=== PATIENT | male | born 1940 | race Caucasian/White ===

== ENCOUNTER 2017-01-12 12:59 | Inpatient (IN) ==
[2017-01-12 13:31] LABS: MANUAL DIFF NEEDED? NO
[2017-01-12 13:44] LABS: INR 1.06; PROTIME 11.2 Seconds (9.2-11.7); PTT 24.7 Seconds (22.0-36.0)
[2017-01-12 13:47] LABS: BASO% 0.6 % (0.0-0.8); EOS# 0.17 X1000 (0.0-0.7); EOS% 3.2 % (0.0-10.0); HEMATOCRIT 24.5 % (42.0-52.0); LYMPH# 1.18 X1000 (1.2-3.4); LYMPH% 22.3 % (20.5-51.1); MCH 29.6 PG (27-31); MCHC 32.7 g/dL (33-37); MCV 90.7 FL (81-99); MONO# 0.58 X1000 (0.11-0.59); MPV 8.5 FL (7.4-10.4); NEUT% 62.9 % (42.2-75.2); PLT 152 X1000 (130-400)
[2017-01-12 14:03] LABS: ALBUMIN 3.6 g/dL (3.5-5.0); CALCIUM 8.8 mg/dL (8.8-10.2); POTASSIUM 4.6 mmol/L (3.5-5.1); TOTAL BILIRUBIN 0.42 mg/dL (0.20-1.00)
--- NOTE | 2017-01-12 16:28 | PROVIDER DOCUMENTATION ---
HPI-General Adult - History of Present Illness -Gen Adult Nature of Presenting Problems: 76 yom presents to ed with abnormal labs.pt states he was sent by in home care nurse due to abnormal lab work drawn sunday01/08/2017.pt has had 4 bypass and heart valve surgery dec 13.pt states he has been feeling weakness and nausea for 2 wks and is getting worse. Location of Pain/Injury: reports: none Pain Radiation: reports: no radiation Quality of Pain: reports: none Severity: reports: mild Onset/Duration: reports: this morning Timing: reports: still present Context/Activities at Onset: reports: none Modifying Factors: improves with: nothing Associated Symptoms: reports: nausea, weakness. denies: diarrhea, vomiting Similar Symptoms Previously?: No Recently seen or treated by another doctor?: No <Stephany Wise - Last Filed: 01/12/17 16:36> <Mal Driver - Last Filed: 01/12/17 16:40> - General Chief Complaint: Abnormal Lab[s] Stated Complaint: sent by MD for further eval Time Seen by Provider: 01/12/17 15:51 Allergies/Adverse Reactions: Patient Allergies Allergy/AdvReac Type Severity Reaction Status Date / Time No Known Allergies Allergy Verified 11/09/16 12:00 Home Medications: Home Medication List Medication Instructions Recorded Confirmed Last Taken Type Aspirin EC 81 mg PO DAILY 11/09/16 01/12/17 01/12/17 07:00 History Levothyroxine [Synthroid] 175 microgm PO QAM 11/09/16 01/12/17 01/12/17 07:00 History Linagliptin [Tradjenta] 5 mg PO QAM 11/09/16 01/12/17 01/12/17 07:00 History Multivit-Minerals/FA/Lycopene [One PO QAM 11/09/16 01/12/17 07:00 History Daily For Men Tablet] Nitroglycerin [Nitrostat] 0.4 mg SL 2-4XDAY PRN PRN #10 11/09/16 01/12/17 Unknown Rx tab.subl PRAVAstatin [Pravachol] 40 mg PO QPM 11/09/16 01/12/17 01/12/17 07:00 History Amiodarone [Cordarone] 1 tab PO DAILY 01/12/17 01/12/1717 07:00 History CefTRIAXONE [Rocephin] 1 dose IV DAILY 01/12/17 01/12/17 01/11/17 History Docusate Sodium [Colace] 1 cap PO DAILY 01/12/17 01/12/17 01/12/17 07:00 History Linezolid 1 dose IV DAILY 01/12/17 01/12/17 01/11/17 History Review of Systems - Adult - REVIEW OF SYSTEMS - ADULT Constitutional: reports: fatique. denies: chills, fever Eyes: reports: no symptoms reported Ears, Nose, Mouth & Throat: reports: no symptoms reported Cardiovascular: reports: other (weakness). denies: chest pain, palpitations Respiratory: reports: no symptoms reported Gastrointestinal: reports: nausea. denies: abdominal pain, vomiting Genitourinary: reports: no symptoms reported Musculoskeletal: reports: no symptoms reported Integumentary: reports: no symptoms reported Neurological: reports: no symptoms reported Psychiatric: reports: no symptoms reported Endocrine: reports: no symptoms reported Hematologic/Lymphatic: reports: no symptoms reported Allergic/Immunologic: reports: no symptoms reported All Other Systems: Reviewed and Negative <Stephany Wise - Last Filed: 01/12/17 16:36> Past History - Adult - PAST MEDICAL HISTORY-ADULT Review of Records: reports: Old Records Reviewed, Nursing Assessment Review, Medications Reviewed Major Childhood Illnesses: reports: denies history Cardiovascular: reports: HTN, hyperlipidemia Respiratory: reports: denies history Gastrointestinal: reports: denies history Obstetrical/Gynecological: reports: denies history Genitourinary: reports: denies history Musculoskeletal: reports: denies history Neurological: reports: denies history Endocrine/Immune: reports: Diabetes Other Conditions: reports: denies history - PRIOR SURGERIES/PROCEDURES Surgical/Procedure History: reports: EGD, cholecystectomy, tonsillectomy - IMMUNIZATION STATUS Childhood Immunizations: See Nurse Assessment Flu Vaccine: See Nurse Assessment - FAMILY HISTORY Family History: reviewed, not pertinent - SOCIAL HISTORY Smoking: denies Substance Use: denies Alcohol Use Frequency: never Living Situation: family <Stephany Wise - Last Filed: 01/12/17 16:36> Physical Exam-General - PHYSICAL EXAM-ADULT Initial Vital Signs Reviewed: Yes - CONSTITUTIONAL General Appearance: appears well, alert, no apparent distress - EYES Eyes: PERRL/EOMI, pink conjunctivae, fundi clear, no AV nicking - HEAD, EARS, NOSE, MOUTH & THROAT HENMT: normocephalic/atraumatic, moist mucous membranes, normal ENT inspection - NECK Neck: non-tender, full range of motion, supple, normal inspection - RESPIRATORY Respiratory: chest non-tender, lungs clear, normal breath sounds, no pleuratic chest pain, no respiratory distress, no accessory muscle use - CARDIOVASCULAR Cardiovascular: normal peripheral pulses, regular rate, rhythm, no edema, no gallop, no JVD, no murmur - GASTROINTESTINAL (ABDOMEN) Abdominal Exam: normal bowel sounds, non tender, soft, no organomegaly, no pulsatile mass - LYMPHATIC Lymphatic: no adenopathy - MUSCULOSKELETAL Back Exam: normal inspection, no CVA tenderness, no vertebral tenderness Extremity: normal range of motion, non-tender, normal inspection, no pedal edema , no calf tenderness, normal capillary refill - SKIN Integumentary: normal color, normal turgor, warm/dry - NEUROLOGIC Neurologic: 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 as tested, grossly normal, no motor/sensory deficits - PSYCHIATRIC Psych/Mental Status: normal mood/affect, normal thought content, normal thought process, oriented x 3 <Stephany Wise - Last Filed: 01/12/17 16:36> Progress - REASSESSMENT Reassessment #1 Time Reassessed: 16:38 Status: unchanged (discussed with Dr Nugent who agrees to admission for evaluation of anemia) <Mal Driver - Last Filed: 01/12/17 16:40> Departure <Stephany Wise - Last Filed: 01/12/17 16:36> - Departure Time of Disposition Order: 16:40 Certified Medical Emergency: Emergent <Mal Driver - Last Filed: 01/12/17 16:40> - Departure DIAGNOSIS: Anemia Qualifiers: Anemia type: unspecified type Qualified Code(s): D64.9 - Anemia, unspecified Disposition: HOME 01 Condition: Stable Referrals: Jn Leiva MD [Primary Care Provider] - Attestation - Scribe Verification/Attestation Scribe:: Stephany Wise Acting as Scribe for:: Mal Driver Scribe documention review:: This chart was documented by a scribe and accurately reflects the service the provider performed and the decisions made by the provider. <Stephany Wise - Last Filed: 01/12/17 16:36> Physician Attestation
[2017-01-12] MEDS ORDERED: NITROGLYCERIN SL PRN (17:33)
[2017-01-12] MEDS ORDERED: ZOFRAN IV PRN (17:33)
[2017-01-12] MEDS ORDERED: PROTONIX IV SCH (17:33)
[2017-01-12 17:55] LABS: IRON SATURATION 64 %; TIBC 245 ug/dL; TOTAL IRON 156 ug/dL (53-167); UNBOUND IRON 89 ug/dL (112-346)
[2017-01-12] MEDS ORDERED: NS 1,000 ML IV SCH (18:00)
[2017-01-12 18:02] LABS: HEMOGLOBIN A1C 5.7 % (4.8-6.0)
[2017-01-12] MEDS: SODIUM CHLORIDE 0.9% INJ SCH (18:53)
--- NOTE | 2017-01-12 19:02 | HISTORY AND PHYSICAL ---
CHIEF COMPLAINT: Weakness and anemia. PCP: Dr. Jn Leiva. INFECTIOUS DISEASES: Dr. Kenney. HISTORY OF PRESENT ILLNESS: Mr. Sandoval is a 76-year-old male with a history of severe coronary disease status post CABG in November done at [facility]. He also had a valve replaced. He is currently on IV antibiotics per Dr. Kenney in [place] for I believe endocarditis but the patient is unsure. He states there was possibly mass on his valve but he denies any history of bacteremia. He was at Dr. Kenney's office today, he was complaining of some weakness and shortness of breath over the past week and a half so Dr. Kenney told him to come to the ER for evaluation. In the ER patient had labs and diagnostics done. He was found to be anemic with a hemoglobin of 8. The patient does have blood work here 2 other times this month and his hemoglobin at that time has been 8.1, and 9, in November and October his hemoglobin was 10.8 and 11.3. The patient has been complaining of some abdominal discomfort and queasiness but he denies any overt pain or vomiting. He denies any lower extremity edema or orthopnea, he denies any melena, hematochezia or hematemesis. He does report around a 20-pound weight loss this month. He denies any fever, chills, cough or congestion. The patient also has some mild renal insufficiency but again this seems to be somewhat chronic as he has had a creatinine of 1.2 measured since October. His vital signs are stable. We are now going to admit him for further evaluation and treatment. PAST MEDICAL HISTORY: 1. Coronary disease status post CABG and valve replacement. 2. Some type of bacterial infection on IV antibiotics per Dr. Kenney in [place]. 3. Type 2 diabetes. 4. Hypertension. 5. Hyperlipidemia. History of CABG and valve replacement, cholecystectomy, appendectomy. SOCIAL HISTORY: Patient denies tobacco, alcohol or drug use. 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 He has family at the bedside. FAMILY HISTORY: Mother at 87 from alcohol-related disease. Dad from unknown causes. REVIEW OF SYSTEMS: Fourteen-point review of systems obtained and found to be negative with the exception of the HPI. ALLERGIES: No known drug allergies. HOME MEDICATIONS: Amiodarone 200 mg daily, aspirin 81 mg daily, Rocephin 1 g daily, Colace 100 mg daily, Synthroid 175 mcg daily, Tradjenta 5 mg a.m. Zyvox 600 mg daily, Pravachol 40 mg q.p.m., Nitrostat as needed. PHYSICAL EXAMINATION: VITAL SIGNS: Blood pressure is 142/53, heart rate 58, respiratory rate 18, O2 saturation 100% on room air, temperature is 98 degrees. GENERAL: This is an obese male lying in hospital bed in no acute distress. NEUROLOGIC: The patient is awake, alert and oriented. He follows commands without focal deficits. HEENT: Head is atraumatic and normocephalic. His pupils are equal, round, reactive to light. Oral mucosa is moist. Trachea is midline. There is no JVD. No carotid bruits. CHEST: Clear to auscultation bilaterally. Surgical incisions are clean, dry and intact. Powell port is noted in the right chest. CV: Regular rate and rhythm. S1-S2 is noted. No murmurs, gallops, clicks, rubs. GI: Epigastric tenderness to palpation. GI bowel sounds are hypoactive. EXTREMITIES: Trace to 1+ edema bilaterally with pulses palpable but diminished. DIAGNOSTIC DATA: Sodium 139, potassium 4.6, chloride 101, CO2 22, anion gap 16, BUN 23, creatinine 1.4, glucose 125, calcium 8.8, bilirubin 0.42, AST 20, ALT 8, alkaline phosphatase 53, protein 6, INR 1.06. WBC 5.29, hemoglobin 8, hematocrit 24.5, platelet count 152,000. Chest and abdomen x-ray as well as EKG are pending. ASSESSMENT/PLAN: 1. Anemia: This seems to be somewhat of a chronic issue but will check occult stool, iron studies and a CT of the abdomen and pelvis. Given his mild abdominal pain we may consult GI but will wait for some more results to come back. 2. Acute on chronic renal failure: Likely prerenal. We will withhold any nephrotoxic medications and monitor, being cautious with hydration and we will start very gentle hydration at 50 mL an hour of normal saline. 3. Diabetes mellitus: Will check a hemoglobin A1c, thyroid function and add pattern sugars sliding scale insulin and hold his home medications. 4. Hypothyroidism: Chronic stable, continue Synthroid and check thyroid function. 5. Coronary artery disease: Patient does report some mild shortness of breath, this is likely secondary to his anemia but we will make sure and rule out myocardial infarction with cardiac enzymes, check a chest x-ray and EKG. 6. Bacterial infection on intravenous antibiotics: We are going to get records from [facility] and Dr. Kenney and consult with Dr. Alegre. Patient has no white count and he is afebrile at this time. 7. Deep vein thrombosis prophylaxis will be provided with SCDs and TEDs given his anemia of unknown origin. Further recommendations to follow. Dictated by ESVIN Garner for Janis Hernandez MD
[2017-01-13 06:51] LABS: MANUAL DIFF NEEDED? NO
[2017-01-13 07:03] LABS: BASO% 0.2 % (0.0-0.8); EOS# 0.17 X1000 (0.0-0.7); EOS% 3.8 % (0.0-10.0); HEMATOCRIT 21.6 % (42.0-52.0); HEMOGLOBIN 6.9 g/dL (14.0-18.0); LYMPH# 1.12 X1000 (1.2-3.4); LYMPH% 24.9 % (20.5-51.1); MCHC 31.9 g/dL (33-37); MCV 90.8 FL (81-99); MONO# 0.43 X1000 (0.11-0.59); MONO% 9.6 % (1.7-9.3); NEUT% 61.5 % (42.2-75.2); PLT 124 X1000 (130-400); RBC 2.38 XMIL (4.7-6.1); RETIC% 0.51 % (0.8-2.1); RETIC-HE 32.1 PG (28.2-36.6)
[2017-01-13 07:11] LABS: AGAP 13; BUN 24 mg/dL (8-22); CALCIUM 8.7 mg/dL (8.8-10.2); CHLORIDE 104 mmol/L (98-107); COSMO 286; HDL 50 mg/dL (35-55); LDL 11 mg/dL; POTASSIUM 4.6 mmol/L (3.5-5.1); SODIUM 141 mmol/L (136-145); TCO2 24 mmol/L (25-35); TRIGLYCERIDES 119 mg/dL (39-160); VLDL 24 mg/dL
[2017-01-13] MEDS ORDERED: LACTULOSE PO ONE (09:00)
[2017-01-13] MEDS ORDERED: LINEZOLID IV SCH (09:00)
[2017-01-13] MEDS ORDERED: ROCEPHIN IV SCH (09:00)
[2017-01-13] MEDS: ZYVOX 600 MG/D5W 300 ML IV SCH (09:20)
[2017-01-13] MEDS: VITAMIN B-12 SL SCH (09:27)
[2017-01-13] MEDS: COLACE PO SCH (09:27)
[2017-01-13] MEDS: SYNTHROID PO SCH (09:27)
[2017-01-13] MEDS: CORDARONE PO SCH (09:27)
[2017-01-13] MEDS: MIRALAX PO SCH ×2 (09:27→21:20)
--- NOTE | 2017-01-13 10:46 | Diag Imaging Result Document ---
PROCEDURE NAME: ABDOMEN/PELVIS W/O CONTRAST - 01/12/2017 CT ABDOMEN AND PELVIS: A CT dose reduction protocol was used. COMPARISON: Chest CT 11/09/2016. FINDINGS: There is a new moderate left basilar pleural effusion with atelectasis. There are new valve replacement changes which probably explains this. No radiodense renal stones. There is a left renal cyst. No bowel obstruction or inflammation. Urinary bladder, prostate, and rectum are normal. There are cholecystectomy clips. Bony structures are intact. IMPRESSION: New aortic valve replacement change. Left basilar pleural effusion with adjacent atelectasis. Otherwise, no acute findings. [facility]
--- NOTE | 2017-01-13 11:46 | Diag Imaging Result Document ---
PROCEDURE NAME: FLAT/UPRIGHT ABD/1 VIEW CHEST - 01/12/2017 FRONTAL CHEST X-RAY AND TWO VIEWS OF THE ABDOMEN: COMPARISON: 11/09/2016. FINDINGS: There is a new right central line with the catheter tip at the SVC. There is a new left basilar pleural effusion that is [id number] in size. No infiltrates. There are new sternotomy wires. Heart size it top normal. There are cholecystectomy clips. No bowel obstruction or free air. IMPRESSION: 1. New surgical changes in the chest. 2. New small left basilar pleural effusion.
[2017-01-13] MEDS ORDERED: NS 500 ML ONE (13:04)
[2017-01-13] MEDS: LASIX IV SCH (14:39)
[2017-01-13] MEDS: ROCEPHIN 1 GM/NS 50 ML IV SCH (14:40)
--- NOTE | 2017-01-13 14:58 | PROGRESS NOTE ---
DATE: 01/13/2017 SUBJECTIVE: Today, Mr. Sandoval referred to be doing a little fine. Briefly, Mr. Sandoval is a 76-year- old gentleman who was recently diagnosed with coronary artery disease and underwent CABG on 12/13/2016 and a valvular replacement during that same surgery. I am not quite sure if it was the mitral or the aortic. The patient postoperatively did fine, went home, but he is being treated with antibiotics. I am not sure if he had endocarditis. He follows up with Dr. Hobson, the cardiothoracic surgeon, and Dr. Kenney of Infectious Disease. According to him, he has been feeling remarkably weaker over the course of the weeks. Home health did some laboratory work and he was called a couple of days later and told to come to the ER because of abnormal findings. Over here in the ER, his initial hemoglobin was 8.0 and the repeat this morning is down to 6.9. Patient's Hemoccult is positive and he refers to feel relatively dizzy when he gets up. OBJECTIVE: Vital Signs: Blood pressure is 139/71, pulse of 66, respirations 17, and temperature is 97.5 degrees. General: Mr. Sandoval is a 76-year-old male. He was in bed. He did not seem to be in any distress. HEENT: Mucosa is pink and moist. Anicteric. Acyanotic. Neck: Supple. Chest: There is a fresh surgical scar on the sternum consistent with recent open heart surgery. Cardiovascular: Regular rate and rhythm. Abdomen: Soft, distended, and mildly tender in the right lower quadrant. Extremities: Mildly edematous on the right, where venous harvesting took place. Lungs: Air entry is bilaterally reduced. There are a few bibasilar coarse crepitations. Central Nervous System: Patient is alert and oriented x4. There is no focal neurological deficit. LABORATORY DATA: WBC is 4.50, hemoglobin is 6.9, and platelet count is 124,000. Chemistry is reviewed. Creatinine is 1.3. Folate is normal, but B12 is remarkably low at 126. ASSESSMENT: 1. Symptomatic anemia. The patient's hemoglobin is 6.9 this morning. We will going to group and crossmatch him, and give him 2 units of PRBC. We hope to maintain the hemoglobin above 9, being a cardiac patient who just had surgery. 2. Coronary artery disease status post coronary artery bypass graft and valvular replacement. I understand it is a tissue valve, but we do not know. This was done by Dr. Hobson. I have tried to reach out to him at [phone]. The office is closed. 3. Long-term antibiotic therapy. Unsure why the patient is on this. My guess is he is being treated for endocarditis. However, I am not certain. I tried to reach Dr. Kenney at [phone], but nobody picked up the phone. 4. Hypothyroidism, stable. 5. Acute kidney injury. 6. Atelectasis with some pleural effusion. We will continue with low-dose diuresis. 7. B12 deficiency. Patient is getting supplements. 8. Positive occult blood. The patient is on aspirin. Unsure if the anemia is due to GI blood loss. Gastroenterology has been consulted. Patient is currently on PPI IVPB. In general, Mr. Sandoval is a 76-year-old male who recently had major heart surgery, who presented with symptomatic anemia. A CT scan of the abdomen has shown some left pleural effusion and left lower lobe atelectasis or consolidation. There is moderate stool. But most concerning is his anemia, which looks like the reticulocyte count is ridiculously low for the level of anemia, so I am suspecting this is a hypoproliferative bone marrow state, which linezolid is an agent that can cause it. Also, patient is B12 deficient, so this could also be a factor. I have tried to reach out to both his cardiothoracic surgeon and his infectious disease doctor at the numbers given to me by [facility] [place], but none of them have responded. We are going to do a CT scan of the chest to get a better image of the lungs and also an echocardiogram to make sure there has not been any gradual leaking into the pericardium or any post-surgical complications. We will also consult Gastroenterology to do a GI evaluation to rule out GI blood loss, and we have also consulted Heme-Onc for the pancytopenia.
--- NOTE | 2017-01-13 16:06 | Diag Imaging Result Document ---
PROCEDURE NAME: CT THORAX W/O CONTRAST - 01/13/2017 CT CHEST: A CT dose reduction protocol was used. COMPARISON: 01/12/2017, 11/09/2016. FINDINGS: There is a right-sided central line. There are new aortic valve changes. There are sternotomy wires. No infiltrates or pneumonia. There is a small to moderate left pleural effusion and some adjacent atelectasis. IMPRESSION: 1. Small left pleural effusion. 2. No change from yesterday. 3. No infiltrates. [facility]
[2017-01-13] MEDS ORDERED: PERICOLACE PO ONE (19:05)
--- NOTE | 2017-01-13 22:26 | CONSULTATION ---
DATE OF CONSULTATION: 01/13/2017 REFERRING PHYSICIAN: Joey Mullins M.D. PRIMARY CARE PHYSICIAN: Jn Leiva M.D. INFECTIOUS DISEASE: Dr. Kenney. INDICATION FOR CONSULTATION: 1. Anemia. 2. Weakness. HISTORY OF PRESENT ILLNESS: The patient is a 76-year-old white male who had severe coronary artery disease. In November 2015, he underwent a 4-vessel bypass as well as aortic valve replacement. He was noted to have a possible mass on his valve but had no symptoms of bacteremia. Postop, the patient reports that he was doing well. However, he developed progressive weakness and shortness of breath. He was referred to the emergency room by Dr. Kenney and was subsequently found to be anemic with a hemoglobin of 8. Over the last month, he has had 3 episodes of recurrent anemia but had no signs of bleeding. One day prior to admission, he reports dark brown to black stools. Otherwise, he denies melena, hematochezia, hematemesis. He has had an unplanned weight loss of approximately 20 pounds. His main complaint has been weakness and fatigue. Since admission, his hemoglobin has dropped from 8.0 to 6.9 with a hematocrit of 21.6. The patient states that he has had multiple EGDs and colonoscopies in the past. He has a history of gastric polyps as well as colon polyps. We are asked to participate in his care. PAST MEDICAL HISTORY: 1. Coronary artery disease status post 4-vessel CABG and aortic valve replacement. 2. Possible mass versus infection on his aortic valve. 3. Bacterial infection treated with IV antibiotics post CABG. 4. Diabetes 2. 5. Hypertension. 6. Hyperlipidemia. 7. Iron-deficiency anemia. PAST SURGICAL HISTORY: 1. Coronary artery bypass surgery. 2. Aortic valve replacement. 3. Cholecystectomy. 4. Appendectomy. SOCIAL HISTORY: Negative for alcohol, tobacco or recreational drug use. 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 He relocated from [place], [place] 3 months ago to be closer with 2 children and grandchildren. FAMILY HISTORY: Remarkable that his mother at age 87 years of age from alcohol-related disease. His father of unknown causes. REVIEW OF SYSTEMS: Remarkable for nausea and mild diffuse abdominal pain, melena for 1 day, weakness and shortness of breath. MEDICATION ALLERGIES: None. HOME MEDICATIONS: 1. Amiodarone. 2. Aspirin. 3. Rocephin. 4. Colace. 5. Synthroid. 6. Tradjenta. 7. Zyvox. 8. Pravachol. 9. Nitrostat. PHYSICAL EXAMINATION: Vital Signs: His blood pressure is 152/69, pulse 64, respiration 18, temperature of 97.9 degrees. HEENT: Negative for jaundice. His conjunctivae are normal. His oropharyngeal mucosa membranes are unremarkable. Pulmonary: Lungs are clear to auscultation with normal expiratory effort. Cardiovascular Exam: Reveals regular rate and rhythm with no gallops or rubs. He does have a sternotomy scar consistent with his recent surgical history. Abdominal: He has mild diffuse tenderness. There is central adiposity. There is no rebound or guarding. The bowel sounds are normoactive. Extremities: Bilaterally are notable for trace edema Neurologic Exam: He is alert and oriented x3 although he is slightly hard of hearing. OBJECTIVE DATA: Remarkable for hemoglobin of 6.9 with hematocrit of 21.6 and white count of 4.50. He has 124,000 platelets. His sodium is 141, potassium 4.6, chloride 104, CO2 24, BUN 24, creatinine 1.3 with a glucose of 113. His calcium is 8.7. His TSH is 5.01. On admission on 01/12/2017 his PT was 11.2 with an INR of 1.06 and a PTT of 24.7. His stool is guaiac positive. IMPRESSION: 1. Profound anemia. 2. History of gastric polyps. 3. History of colon polyps. 4. Mild nausea. 5. Diffuse abdominal tenderness. RECOMMENDATION: 1. Because the patient is heme-positive consistent with his serum chemistries which reveal anemia, I recommend an EGD and colonoscopy on Sunday. 2. In addition to endoscopic evaluation, I will increase his PPI therapy to twice a day with Protonix 40 mg in order to minimize the risk of an upper GI bleed. 3. The patient has a history of constipation according to his . Therefore, I would continue the MiraLAX twice a day. Should he have diarrhea I would reduce either the MiraLAX or the stool softener which he is currently receiving. 4. Additional recommendations will follow based on his clinical course. [facility]
[2017-01-14] MEDS: LASIX IV SCH ×2 (00:38→12:54)
--- NOTE | 2017-01-14 03:50 | ECHO REPORT ---
ORDER DATE: 01/13/2017 MEASUREMENTS: Left ventricular end-diastolic diameter 5.4, end-systolic diameter 3.4, septal thickness 1, posterior wall thickness 1, left atrium 5.6, aortic root 4.2. SUMMARY: 1. Technically difficult study due to limited acoustic window quality. 2. Aortic valve has been replaced with bioprosthesis. Peak gradient across the aortic valve is 38.9 mmHg with a mean gradient of 19.1 mmHg. Calculated aortic valve area is 1.6 cm2. There is no aortic insufficiency. Mitral and tricuspid valves are without structural abnormality with very mild mitral regurgitation and very mild tricuspid regurgitation. Pulmonic valve is not well demonstrated. Estimated systolic PA pressure by Doppler is approximately 50 mmHg suggesting moderate pulmonary hypertension. The aortic root is mildly enlarged. 3. Normal left ventricular dimensions suggested. Estimated left ejection fraction is approximately 65-70%. No regional wall motion abnormalities are evident. Left atrium is moderately enlarged. Right atrium and right ventricle are of normal size with grossly preserved right ventricular systolic performance. 4. No pericardial effusion. 5. Inferior vena cava not well demonstrated. CONCLUSIONS: 1. Technically difficult study. 2. Aortic valve bioprosthesis appears to be functioning adequately. 3. Very mild mitral regurgitation and very mild tricuspid regurgitation. 4. Moderate pulmonary hypertension by Doppler. 5. Estimated left ejection fraction is 65-70%. 6. Moderate left atrial enlargement.
[2017-01-14] MEDS: SODIUM CHLORIDE 0.9% INJ SCH ×2 (06:14→18:11)
[2017-01-14] MEDS: PROTONIX IV SCH ×2 (06:14→18:11)
[2017-01-14 06:57] LABS: MANUAL DIFF NEEDED? NO
[2017-01-14 07:12] LABS: BASO% 0.6 % (0.0-0.8); EOS% 3.9 % (0.0-10.0); HEMATOCRIT 27.3 % (42.0-52.0); HEMOGLOBIN 9.2 g/dL (14.0-18.0); LYMPH# 1.38 X1000 (1.2-3.4); LYMPH% 27.1 % (20.5-51.1); MCH 30.1 PG (27-31); MCHC 33.7 g/dL (33-37); MCV 89.2 FL (81-99); MONO# 0.62 X1000 (0.11-0.59); MONO% 12.2 % (1.7-9.3); MPV 9.1 FL (7.4-10.4); NEUT% 56.2 % (42.2-75.2); PLT 123 X1000 (130-400); RBC 3.06 XMIL (4.7-6.1)
[2017-01-14 07:29] LABS: CALCIUM 8.7 mg/dL (8.8-10.2); POTASSIUM 4.6 mmol/L (3.5-5.1)
[2017-01-14] MEDS: ROCEPHIN 1 GM/NS 50 ML IV SCH (08:08)
[2017-01-14] MEDS: MIRALAX PO SCH ×2 (08:09→20:45)
[2017-01-14] MEDS: VITAMIN B-12 SL SCH (08:10)
[2017-01-14] MEDS: COLACE PO SCH (08:10)
[2017-01-14] MEDS: CORDARONE PO SCH (08:10)
[2017-01-14] MEDS: SYNTHROID PO SCH (08:10)
[2017-01-14] MEDS: ZYVOX 600 MG/D5W 300 ML IV SCH ×2 (08:52→15:06)
[2017-01-14] MEDS ORDERED: DULCOLAX PO ONE ×2 (09:00→19:05)
[2017-01-14] MEDS ORDERED: MIRALAX PO ONE (14:00)
[2017-01-14] MEDS ORDERED: NON-FORMULARY BULK MED PO ONE (14:15)
--- NOTE | 2017-01-14 18:11 | PROGRESS NOTE ---
DATE: 01/14/2017 SUBJECTIVE: Today Mr. Sandoval referred to be doing relatively fine. Denies any remarkable dizziness or any chest pains. Patient has been walking around on the floor with his without any major problems. OBJECTIVE: Vital signs: Blood pressure is 124/63, pulse of 61, respirations 20, temperature is 98.7 degrees. General: Mr. Sandoval is a 73-year-old male. He was in bed. Did not seem to be in any distress. HEENT: Mucosa is pink and moist. Anicteric. Acyanotic. Neck: Supple. Chest: Good air entry bilateral. There are some crepitations in the lower posterior lung field, more so on the left. There is a fresh surgical scar on the sternum consistent with recent open heart surgery. Cardiovascular: Regular rate and rhythm. I did not appreciate any murmurs. No rubs. No gallops. Abdomen: Soft, nontender. Extremities: Mildly edematous on the right where there was a venous harvest. 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 There is no focal neurological deficit. LABORATORY DATA: WBC is 5.09, hemoglobin is 9.3, platelet count of 123,000. Chemistry is reviewed and completely normal. An echocardiogram which was done yesterday shows there is a bioprosthetic aortic valve which is functioning adequately. Estimated ejection fraction is 65 to 70%. There is moderate left atrial enlargement. A CT scan of the chest did show small left pleural effusion. No infiltrates. ASSESSMENT: 1. Symptomatic anemia. Hemoccult is positive. Patient has been transfused 2 PRBC. Hemoglobin and hematocrit are back to normal. We are going to continue very close monitoring. Patient has been seen by GI and there is a plan for EGD colonoscopy. 2. Coronary artery disease status post recent coronary artery bypass graft with aortic valve replacement. Seems to be bioprosthetic as per the echo report. 3. Long-term antibiotic. This was started after the surgery in [facility]. Patient is being followed by Dr. Kenney, ID physician in [place]. 4. Hypothyroidism, stable. 5. Acute kidney injury. This is resolved. 6. Left pleural effusion with atelectasis. Patient will continue with incentive spirometer. 7. 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 8. B12 deficiency. Probably causing the above condition. Will continue replacing this. PLAN: In general, Mr. Sandoval seems to be doing a whole lot better today. He has been walking on the floor with the . He is clinically stable. He is pending EGD, colonoscopy tomorrow as per GI's note. Will follow up with further recommendations after the procedure. I will get in touch with Dr. Hobson and Dr. Kenney who are his physician's in [place] to update them on what is going on with the patient.
[2017-01-14] MEDS ORDERED: FLEET ENEMA PR PRN (18:28)
[2017-01-15] MEDS: LASIX IV SCH (00:55)
[2017-01-15] MEDS: PROTONIX IV SCH (06:08)
[2017-01-15] MEDS: SODIUM CHLORIDE 0.9% INJ SCH (06:08)
[2017-01-15 07:40] LABS: CALCIUM 8.6 mg/dL (8.8-10.2); POTASSIUM 4.4 mmol/L (3.5-5.1)
[2017-01-15 08:22] LABS: MANUAL DIFF NEEDED? NO
[2017-01-15 08:27] LABS: BASO% 0.5 % (0.0-0.8); EOS# 0.16 X1000 (0.0-0.7); EOS% 2.8 % (0.0-10.0); HEMATOCRIT 27.2 % (42.0-52.0); HEMOGLOBIN 9.1 g/dL (14.0-18.0); IMM GRAN# 0.02 X1000 (0.0-0.04); IMM GRAN% 0.4 % (0.0-0.5); LYMPH# 1.52 X1000 (1.2-3.4); LYMPH% 26.8 % (20.5-51.1); MCH 29.9 PG (27-31); MCHC 33.5 g/dL (33-37); MCV 89.5 FL (81-99); MONO# 0.74 X1000 (0.11-0.59); MPV 8.8 FL (7.4-10.4); NEUT% 56.5 % (42.2-75.2); PLT 142 X1000 (130-400); RBC 3.04 XMIL (4.7-6.1)
[2017-01-15] MEDS: CORDARONE PO SCH (08:46)
[2017-01-15] MEDS: COLACE PO SCH (08:46)
[2017-01-15] MEDS: ROCEPHIN 1 GM/NS 50 ML IV SCH (08:46)
[2017-01-15] MEDS: MIRALAX PO SCH (08:46)
[2017-01-15] MEDS: SYNTHROID PO SCH (08:47)
[2017-01-15] MEDS: VITAMIN B-12 SL SCH (08:47)
[2017-01-15] MEDS: ZYVOX 600 MG/D5W 300 ML IV SCH (09:44)
[2017-01-15 12:02] VITALS: BP 130/61
[2017-01-15] MEDS ORDERED: MYLICON DROPS (DOSE) MISC ONE (13:40)
[2017-01-15] MEDS ORDERED: DIPRIVAN 1% ONE (14:24)
[2017-01-15] MEDS ORDERED: LR 1,000 ML ONE (14:35)
[2017-01-15] MEDS ORDERED: ANESTHESIA PB SET 88 IN 5742 ONE (14:35)
[2017-01-15] MEDS ORDERED: XYLOCAINE-MPF 2% ONE (14:35)
[2017-01-15] MEDS ORDERED: ANUSOL-HC SUPP PR SCH (14:45)
[2017-01-15] MEDS ORDERED: CARAFATE LIQUID PO SCH (14:45)
[2017-01-15] MEDS ORDERED: CUBICIN (FOR INPATIENT USE) 600 MG in NS 100 ML IV SCH (16:00)
[2017-01-16] MEDS ORDERED: LINZESS PO SCH (07:00)
--- NOTE | 2017-01-16 07:01 | DISCHARGE SUMMARY ---
ADMISSION DATE: 01/12/2017 DISCHARGE DATE: 01/15/2017 DISPOSITION: To home. FOLLOWUP: 1. Dr. Leiva. 2. Dr. Nugent. 3. Dr. Sari Green. 4. Dr. Hobson. CONSULTATION DURING THIS ADMISSION: GI was consulted. Patient was seen by Dr. Nugent. INVASIVE PROCEDURES DONE DURING THIS ADMISSION: EGD and colonoscopy was done by Dr. Nugent. IMAGING STUDIES OF SIGNIFICANCE: A CT scan of the abdomen and pelvic was done on admission which showed left basilar pleural effusion with adjacent atelectasis. Abdomen was unremarkable. A CT scan of the chest showed small left pleural effusion. No infiltrates. An echo shows aortic valve bioprosthetic appears to be functioning adequately. Moderate pulmonary hypertension. Estimated EF was 55-70%. ADMISSION DIAGNOSES: 1. Anemia. 2. Acute on chronic renal failure. 3. Diabetes mellitus. 4. Hypothyroidism. 5. Bacteria infection. DISCHARGE DIAGNOSES: 1. Symptomatic anemia with Hemoccult-positive likely gastrointestinal bleed. 2. Coronary artery disease status post recent coronary artery bypass graft. 3. Aortic valve replacement with bioprosthetic material. 4. Aortic valve endocarditis. 5. Hypothyroidism. 6. Acute kidney injury resolved. 7. Left pleural effusion with atelectasis. 8. B12 deficiency. 9. Hypoproliferative bone marrow. DISCHARGE MEDICATIONS: 1. Aspirin 81 mg daily. 2. Pravastatin 40 mg daily. 3. Linagliptin 5 mg daily. 4. Levothyroxine 175 daily. 5. Ceftriaxone 1 g IV daily. 6. Amiodarone 200 mg daily. 7. Cyanocobalamin 250 mcg daily. 8. Sucralfate 1 g p.o. q.6h. 9. Pantoprazole 40 mg p.o. q.12. PRESENTING COMPLAINT: Weakness and dizziness. HISTORY OF PRESENTING COMPLAINT: Mr. Sandoval is a 76-year-old male who recently was status post CABG and aortic valve replacement. The patient presented to the emergency department because of dizziness. Was worked up and found to be anemic. Over the course of the hospital stay, hemoglobin dropped from 8-6.9. Hemoccult was positive. The patient was subsequently transfused 2 units of PRBCs and GI was consulted. Patient was seen by Dr. Nugent and a decision was made to do EGD and colonoscopy, which at the time of discharge, the official report was not out, but to my understanding, there was nothing acute that could account for the blood drop. I was able to get in touch with Dr. Hobson, the cardiothoracic surgeon who did the surgery in [place], and he recommended just to keep the antibiotics going so he does not get the new valve infected if they stick the scope down there and the patient aspirates anything. I was also able to get in touch with Dr. Guo of infectious disease, who also had a concern that linezolid can occasionally cause anemia and affect the bone marrow, and he recommended that we discontinue the Zyvox and start the patient on daptomycin at 6 mg/kg. I therefore wrote it up and gave a script for that. Patient is supposed to be on both daptomycin and Rocephin until January 26. Today Mr. Sandoval is doing a whole lot better. He just had the procedure and he has been completely asymptomatic. He is tolerating his meals. PHYSICAL EXAMINATION: Vital Signs: His vitals at the time of discharge, blood pressure is 130/61, pulse of 61, respirations 16, temperature 97.6 degrees. Physical exam is completely unremarkable except for the recent surgery that he has had. The patient is therefore going to be discharged home in a very stable condition. He is going to follow up with Dr. Guo this coming 01/17/2017, and he also has an appointment to follow up with Dr. Hobson. The patient will follow up also with Dr. Nugent to review the results of the polyp that was resected during the colonoscopy report. TIME SPENT FOR DISCHARGE: Time spent for discharge was 37 minutes.
--- NOTE | 2017-01-16 16:42 | CONSULTATION ---
DATE OF CONSULTATION: 01/12/2017 ADMITTING PHYSICIAN: Dr. Mullins. REQUESTING PHYSICIAN: Dr. Mullins. We appreciate this consult. CHIEF COMPLAINT: Anemia. HISTORY OF PRESENT ILLNESS: Mr. Sandoval is a very pleasant male who presented to [facility] secondary to dizziness. The patient was status post recent coronary artery bypass grafting and aortic valve replacement. He was found to have a valvular infection and was placed on IV antibiotics at home. Upon presentation to [facility] the patient was found to be profoundly anemic and hemoglobin was 6.9 on admission. The patient did report some minimal epigastric pain with recent melena. He denied any bright red blood per rectum. GI consult has been obtained as well. The patient does report some mild dyspnea with episodes of dizziness. He denies any history of significant anemia. PAST MEDICAL HISTORY: 1. Chronic renal failure. 2. Diabetes mellitus type 2. 3. Hypothyroidism. 4. Coronary artery disease status post coronary artery bypass grafting. 5. Aortic valve replacement with bioprosthetic material. 6. Aortic valve endocarditis on chronic IV antibiotics. 7. B12 deficiency. PAST SURGICAL HISTORY: 1. Coronary artery bypass grafting. 2. Aortic valve replacement. FAMILY HISTORY: Negative for any hematologic or oncologic problems. SOCIAL HISTORY: The patient has no history of tobacco, alcohol or illicit drug use. MEDICATIONS ON ADMISSION: 1. Aspirin. 2. Pravastatin. 3. Linagliptin. 4. Levothyroxine. 5. Ceftriaxone. 6. Amiodarone. 7. Cyanocobalamin. ALLERGIES: The patient has no known drug allergies. REVIEW OF SYSTEMS: A 14-point review of systems was obtained and is negative except for as mentioned in HPI. PHYSICAL EXAMINATION: General: Mr. Sandoval is a very pleasant male lying supine in bed with some minimal dyspnea and in no immediate distress. Vital Signs: Temperature 97.6, blood pressure 130/61, heart rate 61, respirations are 18. O2 saturation 98% on room air. HEENT: Normocephalic, atraumatic. Mucous membranes are pale and moist. Sclerae is anicteric. Extraocular movements intact. Neck: Supple. Lungs: Clear to auscultation bilaterally. Chest expansion is equal bilaterally. CV: S1, S2 is heard without murmur, rub or gallop. Abdomen: Soft, nondistended, nontender. Bowel sounds are positive in all quadrants. No rebound or guarding noted. Extremities: Without clubbing, cyanosis, or edema. Dermatologic: No rashes, bruises or lesions. Neurologic: The patient is awake, alert, and oriented x3. He has no focal deficit at this time. LABORATORY DATA: Hemoglobin 6.9, hematocrit 21.6, white blood cell count 4.50, platelets 124,000. Sodium 141, potassium 4.6, chloride 104, CO2 is 24, BUN 24, creatinine 1.3, and glucose is 113. Calcium is 8.7. Ferritin is 354. IMAGING STUDIES: CT of the abdomen and pelvis reveals new aortic valve replacement change as well as left basilar pleural effusion with adjacent atelectasis and no acute findings otherwise. ASSESSMENT AND PLAN: 1. Anemia in patient with no prior history. The patient does report minimal epigastric tenderness with some recent melena, anemia questionably related to acute blood loss. We agree with GI consult that is currently pending for EGD and colonoscopy evaluation. We will add anemia workup to include reticulocyte count, B12 level, iron studies, ferritin, folate and TSH. 2. Recent aortic valve infection on chronic intravenous antibiotics. Dr. Alegre is currently following. 3. Coronary artery disease status post coronary artery bypass grafting in November 2016. 4. Acute on chronic renal failure. The patient is currently being hydrated gently. The above reflects the history, exam, assessment and plan of Dr. Vernon. Dictated by ESVIN Mcdonough for Seferino Vernon MD
--- NOTE | 2017-01-19 20:43 | OPERATIVE NOTE ---
PROCEDURE DATE: 01/15/2017 REFERRING PHYSICIAN: Joey Mullins M.D. PRIMARY CARE PHYSICIAN: Hector Leiva M.D. INDICATION FOR PROCEDURE: 1. Iron deficiency anemia. 2. History of gastric pain. 3. Nausea. 4. Epigastric pain. PROCEDURE PERFORMED: Esophagogastroduodenoscopy with polypectomy. CONSENT: Informed consent was obtained from the patient prior to the procedure. The risks, benefits, and alternatives were discussed. MEDICATION: The patient received monitored anesthesia care. PERFORMING PHYSICIAN: Lizet Nugent M.D. ASSISTANTS: 1. ST. Lisset 2. Vernon Camara RN. 3. Birdie Palacio RN. 4. Dilcia Bedoya RN. 5. Mayda Arellano CRNA. 6. Pietro Bansal M.D. (anesthesia). COMPLICATIONS: The patient had transient drop in blood pressure with spontaneous recovery. ESTIMATED BLOOD LOSS: One mL. SPECIMEN REMOVED: Gastric polyp. FINDINGS: After sedation was achieved, the upper endoscope was inserted to the 2nd portion of the duodenum. The hypopharynx appeared normal. The tubular esophagus appeared normal to 36 cm. There were streaks of erythema and erosions consistent with grade B erosive esophagitis as less than 75% of the lumen was involved. The GE junction was present at 48 cm from the incisors. There was a Schatzki ring with minimal obstruction. In the gastric lumen, there was erosive gastritis. There were scattered AVMs throughout the body of the stomach. There was a superficial whitish based ulcer in the cardia with no stigmata of bleeding. In the antrum, there was a large antral polyp that was greater than 10-15 mm. It was removed by snare cautery. The pylorus appeared endoscopically normal. The 1st and 2nd portion of the duodenum appeared endoscopically normal. After the exam was complete the lumen was decompressed and the scope was removed without incident. IMPRESSION: 1. Grade B erosive esophagitis. 2. Hiatal hernia. 3. Erosive gastritis. 4. Ulcer in the cardia. 5. Large antral polyp status post removal by snare cautery. RECOMMENDATION: 1. Await biopsy results. 2. Begin Protonix 40 mg q.12 hours. 3. Begin Carafate 1 g p.o. 4 times a day for 12 weeks. 4. Proceed with colonoscopy as previously scheduled. cc: Joey Mullins MD MTDD
--- NOTE | 2017-01-19 20:49 | OPERATIVE NOTE ---
PROCEDURE DATE: 01/15/2017 REFERRING PHYSICIAN: Joey Mullins M.D. PRIMARY CARE PHYSICIAN: Hector Leiva M.D. INDICATION FOR PROCEDURE: 1. Iron deficiency anemia. 2. History of colon polyps. 3. Diffuse abdominal pain. PROCEDURE PERFORMED: 1. Colonoscopy with ablation of polyps. 2. Colonoscopy with biopsy. CONSENT: Informed consent was obtained from the patient prior to the procedure. The risks, benefits, and alternatives were discussed. MEDICATION: The patient received monitored anesthesia care. PERFORMING PHYSICIAN: Lizet Nugent M.D. ASSISTANTS: 1. ST. Lisset 2. Vernon Camara RN. 3. Birdie Palacio RN. 4. Dilcia Bedoya RN. 5. Mayda Arellano CRNA. 6. Pietro Bansal M.D. (anesthesia). COMPLICATIONS: There were no complications. ESTIMATED BLOOD LOSS: 1 mL. SPECIMENS REMOVED: 1. Biopsy of edematous mucosa at the hepatic flexure. 2. Random colon biopsies. 3. Rectal polyp biopsy. FINDINGS: After the EGD was performed, the patient was repositioned. The colonoscope was inserted to the cecum. There were 2 polyps that were less than 5 mm in the cecal base. There were ablated. The appendiceal orifice the cecal base appeared otherwise normal as did the ileocecal valve. Upon withdrawal of the scope, there was nonspecific erythema at the hepatic flexure that was biopsied. In the transverse, descending and sigmoid colon, there was diverticulosis with no evidence of diverticulitis. Throughout the colon, there was evidence of melanosis coli with pigment staining visualized in each segment of the colon. In the upper rectum, there were grade 1- 2 internal hemorrhoids. On retroflexed view, there was a 5-6 mm rectal polyp that was removed by cold biopsy forceps. In addition, there were large external hemorrhoids that were inflamed but with no active bleeding. After the exam was performed, the lumen was decompressed and the scope was removed without incident. CECAL INTUBATION TIME: 9 minutes. WITHDRAWAL TIME: 15 minutes. PREP QUALITY: Poor. IMPRESSION: 1. Colon polyps in the cecum status post ablation. 2. Erythema at the hepatic flexure of unknown significance, status post biopsy. 3. Diverticulosis. 4. Melanosis coli. 5. Grade 1-2 internal hemorrhoids. 6. Rectal polyp status post cold biopsy forceps. 7. Large external hemorrhoids with inflammation but no active bleeding. RECOMMENDATION: 1. Await biopsy results. 2. Begin Anusol HC suppositories or cream as needed. 3. Begin Linzess 290 mcg 1 p.o. daily for chronic constipation. 4. Repeat colonoscopy in 3 years. 5. Will have the patient return to clinic in 4-6 weeks to assess interval progress. cc: Joey Mullins MD MTDD
== END 2017-01-15 17:39 | disposition home or self-care (01) ==
LOC: ED 12:59 → 3N 17:20
PROVIDERS: ATTEND Internal Medicine